=== PATIENT | male | born 2000 | race Caucasian/White ===

== ENCOUNTER 2022-07-26 12:04 | Emergency (ER) | payer OTHER ==
[~2022-07-26] VITALS: Ht 170.2 cm; Wt 63.5 kg
--- NOTE | 2022-07-26 12:13 | NUR ---
Patient ambulated to bed 8.
[2022-07-26 12:14] VITALS: BP 129/55
--- NOTE | 2022-07-26 12:28 | NUR ---
22 y/o male bib self, c/o testicular pain for 3 days. pt states pain increases with squatting. denies n/v/d, rash, dysuria, swelling to site, hematuria, discharge. 3/10 pain at this time. a&ox4, ambulates with steady gait. ermd made aware of pt status. pmh: denies allergy: oreos (hives) med: denies
[2022-07-26 13:16] LABS: APPEARANCE,URINE CLEAR (CLEAR); BILIRUBIN,URINE NEGATIVE (NEGATIVE); BLOOD, URINE NEGATIVE (NEGATIVE); COLOR,URINE YELLOW (YELLOW); LEUKOCYTE ESTERASE ,URINE NEGATIVE (NEGATIVE); NITRITE, URINE NEGATIVE (NEGATIVE); UGLUCOSE NEGATIVE (NEGATIVE)
[2022-07-26 13:39] VITALS: BP 111/63
--- NOTE | 2022-07-26 13:39 | NUR ---
Patient discharged with v/s stable. Written and verbal after care instructions given. Patient verbalized understanding. Ambulatory with steady gait. All questions addressed prior to discharge. Advised to follow up with PMD.
--- NOTE | 2022-07-26 13:42 | NUR ---
The patient's care was reviewed and supervised by Elina Calvin, RN, RN.
== END 2022-07-26 13:39 | disposition home or self-care (01) ==
LOC: MED 12:04
DX: K40.90 Unilateral inguinal hernia, without obstruction or gangrene, not specified as recurrent (principal)
CPT/HCPCS: 81003; 99283